=== PATIENT | male | born 1960 | race Caucasian/White ===

== ENCOUNTER 2018-02-04 08:45 | Day surgery (SDC) | payer OTHER ==
[~2018-02-04] VITALS: Ht 182.9 cm; Wt 104.3 kg
[~2018-02-04 08:45] MED LIST: AMOX250C PO; ASPI-612 PO; CELE200C PO; CYCL5TAB PO; FENO40TA4 PO; IV RINGERS,LACTATED 1000ML 1,000 ML IV SCH; LIDOCAINE 1% PF 2 ML VIAL. ID PRN; LISI10TA2 PO; ONDANSETRON PF 4 MG/2 ML VIAL. IV PRN; PROCHLORPERAZINE 10 MG/2 ML VIAL. IV PRN; TAPE100T7 PO; fentaNYL PF VIAL 100 MCG/2 ML VIAL IV PRN
[2018-02-04] MEDS ORDERED: ACET500T68 PO (09:09)
[2018-02-04] MEDS ORDERED: SIMV10TA3 PO (09:09)
[2018-02-04] MEDS ORDERED: BUPIVACAINE-EPI 0.5%-1:200000 50 ML VIAL. ONE (10:16)
[2018-02-04] MEDS ORDERED: ONDANSETRON PF 4 MG/2 ML VIAL. ONE (10:39)
[2018-02-04] MEDS ORDERED: DEXAMETHASONE SOD PHOS 20 MG/5 ML VIAL. ONE (10:39)
[2018-02-04] MEDS ORDERED: FAMOTIDINE 20 MG/2 ML VIAL ONE (10:39)
[2018-02-04] MEDS ORDERED: PROPOFOL 20 ML IV ONE (10:39)
[2018-02-04] MEDS ORDERED: LIDOCAINE 2% PF Vial for OR 5 ML VIAL. ONE (10:39)
[2018-02-04] MEDS ORDERED: fentaNYL PF VIAL 100 MCG/2 ML VIAL ONE (10:39)
[2018-02-04] MEDS ORDERED: MIDAZOLAM HCL/PF 2 MG/2 ML VIAL. ONE (10:40)
[2018-02-04] MEDS ORDERED: SEVOFLURANE 16 TO 30 MINUTES. IH ONE (11:19)
[2018-02-04] MEDS ORDERED: HYDROcodone/APAP 7.5/325MG 1 TAB TABLET PO ONE (13:00)
[2018-02-04 13:30] VITALS: BP 142/92
--- NOTE | 2018-02-04 14:53 | DISCH ---
DISCHARGE INSTRUCTIONS Condition on Discharge Condition on Discharge: Stable Activity After Discharge Activity Instructions for Disc: Activity as tolerated (slow advance to normal activities as tolerated, symptomatic restrictions only) Diet after Discharge Diet after Discharge: Regular Wound Incision Care Wound/Incision Care: Change dressing (remove dressing after 2 days made then shower no soaking until sutures removed) Contacting the DRShelbi after DC Call your doctor for: Concerns you may have Follow-Up Follow up with: Joseph 10 days REJI EVANS MD Feb 04, 2018 14:53
[2018-02-04] MEDS ORDERED: TAPE75TA3 PO (14:55)
--- NOTE | 2018-02-04 19:31 | PDOC4 ---
Operative Note Operative Note Date of surgery: 02/04/2018 Preoperative diagnosis: Medial meniscus tear Postoperative diagnosis: Same plus grade 3 chondromalacia medial femoral condyle Operative procedure: Left knee arthroscopy partial medial meniscectomy and chondroplasty medial femoral condyle Surgeon: Joseph Anesthesia: GenShelbi Estimated blood loss: 5 mL Complications: None Operative indications: Mr. Holm is a 57-year-old male with pain swelling and mechanical symptoms in the left knee particularly with twisting pivoting and other activities this is been going on for a couple of months and is very limited to his desired activities of daily living. MRI confirmed clinical suspicion of a meniscus tear and I gone over with him structure and function of the meniscus possibility of operative treatment with arthroscopic resection and the fact that it can address the mechanical issues but cannot undo any degenerative changes present that may also be symptomatic. All his questions were answered he wishes to proceed with surgical evaluation and treatment Operative text: Patient was identified procedure verified patient placed in the supine position on the operating table. After adequate amounts of general anesthesia were administered the left lower extremity was prepped and draped in standard sterile fashion with a thigh tourniquet. After timeout was performed patient procedure identified and verified the left lower extremity was exsanguinated by Esmarch bandage tourniquet inflated to 350 mmHg and a lateral portal was established a medial portal established using spinal needle localization and the knee joint was systematically examined. Patellofemoral articulation was noted to be in overall good condition with some minimal chondromalacia not requiring debridement no loose bodies noted in the gutters or suprapatellar pouch. He was found to have a displaceable tear posterior horn of the medial meniscus which was trimmed back to stable tissue and radiused appropriately using arthroscopic punch and shaver. He also had some grade 3 chondromalacia and some chondral flap instability on the weightbearing surface of the medial femoral condyle that was not full-thickness in nature. These areas were trimmed back to stable tissue using arthroscopic shaver. ACL and lateral meniscus were probed and found to be intact. The knee was toured to ensure no loose cartilage pieces or other abnormalities present drained of arthroscopic fluid portals closed with nylon suture and portals and fat pad area were injected with 20 mL of half percent plain Marcaine sterile dressings were then applied toes were noted to be warm pink following deflation of the tourniquet and he was returned recovery room in stable condition having tolerated procedure well REJI EVANS MD Feb 04, 2018 19:31
== END 2018-02-04 15:25 | disposition home or self-care (01) ==
LOC: SURG 08:45
PROVIDERS: ATTEND Orthopaedic Surgery
DX: S83.242A Other tear of medial meniscus, current injury, left knee, initial encounter (principal); X58.XXXA Exposure to other specified factors, initial encounter; Y93.89 Activity, other specified; Y92.89 Other specified places as the place of occurrence of the external cause; Y99.8 Other external cause status; M94.262 Chondromalacia, left knee; E78.00 Pure hypercholesterolemia, unspecified; I10 Essential (primary) hypertension; Z98.890 Other specified postprocedural states; Z72.89 Other problems related to lifestyle; Z79.899 Other long term (current) drug therapy; Z79.82 Long term (current) use of aspirin
CPT/HCPCS: 29881; 97161; A7015; C1782; J0690; J1100; J2001; J2250; J2405; J2704; J3010; J3490

== ENCOUNTER → 2021-02-14 | Day surgery (SDC) | payer OTHER ==
[~2021-02-14] VITALS: Ht 182.9 cm; Wt 102.0 kg
[~2021-02-14] MED LIST changes: +ACET500T68 PO; -ASPI-612 PO; +ASPI-886 PO; -LIDOCAINE 1% PF 2 ML VIAL. ID PRN; +LISI10TA16 PO; -LISI10TA2 PO; +METF500T16 PO; -ONDANSETRON PF 4 MG/2 ML VIAL. IV PRN; -PROCHLORPERAZINE 10 MG/2 ML VIAL. IV PRN; +PROCHLORPERAZINE 10 MG/2 ML VIAL. IVP PRN; +PROPOFOL 10 MG/ML (20ML) VIAL. IV ONE; +SIMV10TA15 PO; +TAPE75TA3 PO; -fentaNYL PF VIAL 100 MCG/2 ML VIAL IV PRN; +fentaNYL PF VIAL 100 MCG/2 ML VIAL IVP PRN
[2021-02-14 09:15] VITALS: BP 155/80
[2021-02-14 09:56] VITALS: BP 156/87
--- NOTE | 2021-02-14 10:39 | HP ---
DATE OF SERVICE: 02/14/2021 ADMIT DATE: 02/14/2021 UPDATED HISTORY AND PHYSICAL REASON FOR CONSULTATION: Colorectal screening. HISTORY OF PRESENT ILLNESS: A 60-year-old male whose past medical history is significant for hyperlipidemia, diabetes, is seen for screening colon exam. Bowel habits are regular without diarrhea or constipation. There has been no melena and/or hematochezia. Family history is negative for colon cancer. He is otherwise without additional complaints. PAST MEDICAL HISTORY: Diabetes, hyperlipidemia. ALLERGIES: TYLENOL, OXYCODONE, PROPOXYPHENE AND TRAMADOL. MEDICATIONS: Aspirin, fenofibrate, lisinopril, metformin. FAMILY HISTORY: Significant for colon polyps with brother, stomach cancer with grandfather, CT with mother, hypertension with mother and sister. SOCIAL HISTORY: He is a never smoker. Social drinker. PAST SURGICAL HISTORY: Significant for appendectomy. REVIEW OF SYSTEMS: Per records. PHYSICAL EXAMINATION: GENERAL: Reveals a well-nourished, well-developed caucasion male who is alert, cooperative. No acute distress. LUNGS: Clear. CARDIOVASCULAR: Reveals an S1, S2, without S3, S4 or appreciable murmur. ABDOMEN: Soft abdomen, normal bowel sounds without appreciable hepatosplenomegaly. VITAL SIGNS: In the office visit; pulse 95, blood pressure is 152/89, respiratory rate 16. IMPRESSION: Colorectal screening. Risks and benefits of procedure including risk of hemorrhage and perforation have been discussed and patient is willing to proceed at this time. GENA/MARIA R TARIQ: Desiree TID: [id number]
== END | disposition home or self-care (01) ==
LOC: ENDOS 08:26
PROVIDERS: ATTEND Internal Medicine Gastroenterology
DX: Z12.11 Encounter for screening for malignant neoplasm of colon (principal); K64.0 First degree hemorrhoids; K57.30 Diverticulosis of large intestine without perforation or abscess without bleeding; K63.89 Other specified diseases of intestine; I10 Essential (primary) hypertension; E78.00 Pure hypercholesterolemia, unspecified; M19.90 Unspecified osteoarthritis, unspecified site; Z87.891 Personal history of nicotine dependence; Z79.82 Long term (current) use of aspirin; Z79.899 Other long term (current) drug therapy; Z98.890 Other specified postprocedural states; Z80.0 Family history of malignant neoplasm of digestive organs; Z88.8 Allergy status to other drugs, medicaments and biological substances
CPT/HCPCS: 45378; J2704